=== PATIENT | male | born 1965 | race African-American/Black ===

== ENCOUNTER 2021-06-17 15:07 | Inpatient (IN) | payer SELFPAY ==
[~2021-06-17] VITALS: Ht 162.6 cm; Wt 53.7 kg
[2021-06-17] VITALS (8 sets, daily range): BP systolic 85–101; BP diastolic 36–66
--- NOTE | 2021-06-17 15:11 | NUR ---
[id number] FRM HOME, FOR NOTED SEIZURE EPISODE. HYPOTENSIVE IN THE FIELD VERSED 5MG IVP AND APPROX 300ML NS GIVEN CAREER DEVELOPMENT DIRECTOR. AMS PT A/OX0; RESPONSIVE TO PAIN STIMULI. JAUNDICED. CAREER DEVELOPMENT DIRECTOR RFA #18G S/L; PATENT AND INTACT. CONNECTED PT TO POX AND AND MONITOR. SEIZURE PRECAUTIONS IN PLACE.
[2021-06-17] MEDS ORDERED: LORAZEPAM INJ 2 MG/ML VIAL ONE ×2 (15:12→17:28)
--- NOTE | 2021-06-17 15:24 | NUR ---
STARTED IV LINE ON LEFT THUMB G 20, BLOOD SPECIMEN COLLECTED AND SENT TO THE LAB. THE LINE IS SALINE LOCKED.
[2021-06-17] MEDS ORDERED: LEVETIRACETAM (500MG) 1,000 MG in IV NS 0.9% 100 ML IV SCH (15:30)
[2021-06-17] MEDS ORDERED: IV NS 0.9% 1,000 ML IV ONE (15:30)
[2021-06-17] MEDS ORDERED: LORAZEPAM INJ 2 MG/ML VIAL IV ONE ×2 (15:30→17:30)
[2021-06-17 15:39] LABS: BASOPHILS # (AUTO) 0.1 K/uL (0.0-0.2); BASOPHILS % (AUTO) 0.7 % (0.0-2.0); HEMATOCRIT 26 % (39-51); HEMOGLOBIN 8.2 g/dL (13.5-17.5); LYMPHOCYTES # (AUTO) 0.5 K/uL (0.8-4.8); LYMPHOCYTES % (AUTO) 3.1 % (20.0-44.0); MEAN CORPUSCULAR HGB CONC 32 g/dl (31.0-36.0); MEAN CORPUSCULAR VOLUME 93 fL (80-96); MONOCYTES # (AUTO) 1.5 K/uL (0.1-1.30); MONOCYTES % (AUTO) 8.9 % (2.0-12.0); NEUTROPHILS # (AUTO) 14.9 K/uL (1.8-8.9); NEUTROPHILS % (AUTO) 87.3 % (43.0-81.0); PLATELET COUNT (AUTO) 213 K/uL (150-450); RED BLOOD CELL COUNT(AUTO) 2.74 MIL/uL (4.5-6.0)
--- NOTE | 2021-06-17 15:40 | NUR ---
INSERTED F/C 16FR; DRAINING ORANGE URINE; PATENT AND INTACT. URINE COLLECTED AND SENT TO LAB
--- NOTE | 2021-06-17 15:42 | NUR ---
BARBER INSTRUCTOR AT PT'S BEDSIDE
[2021-06-17 15:52] LABS: ALANINE AMINOTRANSFERASE 25 U/L (12-78); ALBUMIN 1.7 g/dL (3.4-5.0); ALKALINE PHOSPHATASE 310 U/L (46-116); ASPARTATE AMINOTRANSFERASE 188 U/L (15-37); BILIRUBIN,DIRECT 15.7 mg/dL (0.0-0.2); BILIRUBIN,TOTAL 22.1 mg/dL (0.2-1.0); CALCIUM, SERUM 6.9 mg/dL (8.5-10.1); CHLORIDE 82 mmol/L (98-107); CREATININE 1.1 mg/dL (0.6-1.3); GLUCOSE 80 mg/dL (74-106); SODIUM SERUM 130 mmol/L (136-145); TOTAL PROTEIN, SERUM 5.4 g/dL (6.4-8.2); UREA NITROGEN, BLOOD 19 mg/dL (7-18)
[2021-06-17 15:55] LABS: CARBON DIOXIDE 47 mmol/L (21-32); POTASSIUM 1.9 mmol/L (3.5-5.1)
[2021-06-17 15:56] LABS: ACETAMINOPHEN < 0 ug/ml (10-30); ALCOHOL, BLOOD < 3 mg/dL (0-0)
--- NOTE | 2021-06-17 15:57 | NUR ---
MOVE SHEET SUBMITTED AND CALLED FOR ICU.
[2021-06-17 16:10] LABS: BILIRUBIN,URINE LARGE (NEGATIVE); COLOR,URINE AMBER (YELLOW); LEUKOCYTE ESTERASE ,URINE NEGATIVE (NEGATIVE); NITRITE, URINE POSITIVE (NEGATIVE); PROTEIN,URINE 100 mg/dl (NEGATIVE); UGLUCOSE 100 MG/DL mg/dL (NEGATIVE)
[2021-06-17] MEDS ORDERED: POTASSIUM CL. PREMIX PERIPHER. 300 ML ONE (16:21)
[2021-06-17 16:22] LABS: BAND % (MANUAL) 3 % (0.0-5.0); LYMPHOCYTES % (MANUAL) 6 % (16-48); MONOCYTES % (MANUAL) 8 % (0-11.0); NEUTROPHILS % (MANUAL) 83 (42-76)
--- NOTE | 2021-06-17 16:22 | NUR ---
CALLED COFFEE MAKER SERVICER FOR PICC LINE.
[2021-06-17 16:27] LABS: BACTERIA,URINE Few /HPF (None Seen); SQUAMOUS EPITHELIAL CELL,UR Few /HPF (None Seen); WBC,URINE 0-2 /HPF (0-3)
[2021-06-17] MEDS ORDERED: CEFEPIME 2 GM in IV D5W 100 ML IV SCH (16:30)
[2021-06-17] MEDS ORDERED: VANCOMYCIN 1 GM in IV D5W 250 ML IV ONE (16:30)
--- NOTE | 2021-06-17 16:30 | NUR ---
PT TAKEN TO CT VIA VIRGIL WITH RN
[2021-06-17] MEDS ORDERED: Magnesium 1GM/D5W 100ML PREMIX 400 ML IV ONE (16:36)
--- NOTE | 2021-06-17 16:44 | NUR ---
RT AT PT'S BEDSIDE FOR ABG. RESULTS SHOWED TO DR KOEHLER. ORDERS TO PUT PT ON O2 2LPM VIA N/C; TOLERATING AT 100%
[2021-06-17 16:45] LABS: ABG BASE EXCESS 23.4 mmol/L; ABG PCO2 56.6 mmHg (35.0-45.0); ABG PO2 112.6 mmHg (75.0-100.0); COHb 1.7 % (0.5-1.5); MetHb 0.4 % (0.0-1.5); O2Hb 96.5 % (94.0-97.0); SITE, ABG Right Radial; VENT MODE, BG 4LPM NC
--- NOTE | 2021-06-17 16:45 | NUR ---
RT ABG RESULTS SHOWN TO DR. KOEHLER. PLACED PATIENT ON 2LPM NC. RN AWARE AND AT BEDSIDE. SpO2 100%
[2021-06-17] MEDS: POTASSIUM CL. PREMIX PERIPHER. 50 ML IV SCH ×6 (16:49→21:56)
[2021-06-17] MEDS ORDERED: IV NS 0.9% 1,000 ML BAG IV ONE (17:00)
--- NOTE | 2021-06-17 17:10 | NUR ---
COVID ANTIGEN SWAB COLLECTED AND SENT TO LAB
[2021-06-17] MEDS ORDERED: ASPIRIN 300 MG/SUPP.RECT RC ONE ×2 (17:30→17:34)
[2021-06-17] MEDS: Magnesium 1GM/D5W 100ML PREMIX 100 ML IV SCH ×4 (17:53→20:54)
[2021-06-17] MEDS ORDERED: MAG HYDROX/AL HYDROX/SIMETH 30 ML UDC PO PRN (18:00)
[2021-06-17] MEDS ORDERED: ZOLPIDEM TARTRATE 5 MG TABLET PO PRN (18:00)
[2021-06-17] MEDS ORDERED: ACETAMINOPHEN 325 MG TABLET PO PRN (18:00)
[2021-06-17] MEDS ORDERED: ONDANSETRON HCL/PF 4 MG/2 ML VIAL IVP PRN (18:00)
[2021-06-17] MEDS ORDERED: MAGNESIUM HYDROXIDE 30 ML UDC PO PRN (18:00)
[2021-06-17] MEDS ORDERED: HEPARIN INFUSION/D5W 500 ML IV PRN (18:00)
[2021-06-17] MEDS ORDERED: Z GUARD REMEDY 2 OZ OINT TP PRN (18:00)
[2021-06-17] MEDS ORDERED: LORAZEPAM INJ 2 MG/ML VIAL IV PRN (18:00)
[2021-06-17] MEDS ORDERED: IV D5/ 0.9% NACL 1,000 ML IV ONE (18:00)
--- NOTE | 2021-06-17 19:30 | NUR ---
ADIEL HDZ NURSE AT PT'S BEDSIDE; CONSENT FORM SIGNED
--- NOTE | 2021-06-17 19:43 | NUR ---
JOSE #18G PICCLINE; PATENT AND INTACT.
--- NOTE | 2021-06-17 20:28 | NUR ---
REPORT GIVEN TO MIGUEL COTTRELL RN FOR RACHEL
--- NOTE | 2021-06-17 20:50 | NUR ---
ICU/AVIATION ELECTRONIC WARFARE OPERATOR RECIEVED REPORT FROM ER NURSE.
--- NOTE | 2021-06-17 21:09 | NUR ---
PT TRANSFERRED TO ICU 254 VIA ACLS AND SEIZURE PROTOCOL. ALL BELONGINGS WITH PT. VSS
--- NOTE | 2021-06-17 21:10 | NUR ---
ICU/EPIDEMIOLOGY INTERNSHIP PT CAME UP FROM ER. PT TRANSFERED INTO BED. THEN ICU ASSESSMENT WAS DONE. ALL NEW ORDERS WERE CARRIED OUT.
--- NOTE | 2021-06-17 22:20 | NUR ---
ICU/OSS ARCHITECT SPOKE TO PT'S BROTHER YESSENIA BARRINGTON [phone] AND SISTER NICHOLE BARRINGTON [phone], GAVE THEN UPDATES.
--- NOTE | 2021-06-17 23:00 | NUR ---
ICU/BAKERY CLERK PT'S BP IS LOW, GOT AN ORDER FOR LEVO FOR THIS. WILL CONTINUE TO MONITOR THIS PT'S BP.
--- NOTE | 2021-06-17 23:52 | NUR ---
ICU/GUARD CAPTAIN LAB CALLED ABOUT POSITIVE TROP. AT 1.952, THIS IS TRENDING DOWN.
[2021-06-18] VITALS (54 sets, daily range): BP systolic 37–173; BP diastolic 15–106
[2021-06-18] MEDS ORDERED: NOREPINEPHRINE 8MG/250ML RTU 250 ML IV ONE ×2 (00:09→04:23)
[2021-06-18] MEDS: NOREPINEPHRINE 8 MG in IV NS 0.9% 242 ML IV PRN ×3 (00:12→11:46)
--- NOTE | 2021-06-18 00:20 | NUR ---
ICU/ECONOMICS CONSULTANT LEVO STARTED BY BONDERIZER OPERATOR NURSE FOR LOW BP 84/27, HEART RATE 100. WILL CONTINUE TO MONITOR THIS PT CLOSELY
--- NOTE | 2021-06-18 01:27 | NUR ---
ICU/FACULTY NEUROPSYCHOLOGIST PT'S BP IS STABLE AT THIS TIME WHILE ON LEVO. WILL CONTINUE TO MONITOR THIS PT.
[2021-06-18] MEDS ORDERED: LEVETIRACETAM (500MG) 500 MG in IV NS 0.9% 100 ML IV SCH (03:00)
--- NOTE | 2021-06-18 03:30 | NUR ---
ICU/RUBBER GOODS INSPECTOR TESTER LEVO WAS TITR. TO MAX 1.0 MCG. WILL MONITOR THIS PT.
--- NOTE | 2021-06-18 04:30 | NUR ---
ICU/RODBUSTER SEIZURE LIKE ACTIVITY GAVE ATIVAN PRN FOR THIS BY TUBING MACHINE OPERATOR NURSE. ALSO LOW SATURATION TO LOW 80'S UNIT SUPERVISOR TO A SIMPLE MASK FROM N/C.
[2021-06-18] MEDS ORDERED: VANCOMYCIN 1 GM VIAL ONE (04:39)
[2021-06-18 04:56] LABS: BASOPHILS % (AUTO) 0.2 % (0.0-2.0); EOSINOPHILS % (AUTO) 0.1 % (0.0-6.0); HEMATOCRIT 28 % (39-51); LYMPHOCYTES # (AUTO) 3.7 K/uL (0.8-4.8); LYMPHOCYTES % (AUTO) 18.5 % (20.0-44.0); MEAN CORPUSCULAR HGB CONC 33 g/dl (31.0-36.0); MEAN CORPUSCULAR VOLUME 95 fL (80-96); MONOCYTES # (AUTO) 1.6 K/uL (0.1-1.30); MONOCYTES % (AUTO) 7.8 % (2.0-12.0); NEUTROPHILS # (AUTO) 14.8 K/uL (1.8-8.9); NEUTROPHILS % (AUTO) 73.4 % (43.0-81.0); PLATELET COUNT (AUTO) 259 K/uL (150-450); RED BLOOD CELL COUNT(AUTO) 2.92 MIL/uL (4.5-6.0); WHITE BLOOD COUNT (AUTO) 20.2 K/uL (4.3-11.0)
[2021-06-18] MEDS ORDERED: VANCOMYCIN 0.75 GM in IV D5W 250 ML IV SCH (05:00)
[2021-06-18 05:23] LABS: CALCIUM, SERUM 6.7 mg/dL (8.5-10.1); CREATININE 0.9 mg/dL (0.6-1.3); MAGNESIUM 2.4 mg/dL (1.8-2.4); THYROID STIMULATING HORMONE 0.566 uIU/mL (0.358-3.74)
[2021-06-18] MEDS ORDERED: PHENYLEPHRINE 50 MG in IV NS 0.9% 245 ML IV PRN ×2 (06:30→07:30)
[2021-06-18] MEDS: CEFEPIME 2 GM in IV D5W 100 ML IV SCH ×2 (06:43→08:34)
--- NOTE | 2021-06-18 06:50 | NUR ---
ICU/PRINCIPAL WEB DEVELOPER LOW SATURATION CHANGED OVER TO A NON REBREATHE MASK TO 15 LITERS AND STAT ABG.
--- NOTE | 2021-06-18 06:55 | NUR ---
ICU/GLUER AND SLICER HAND STARTED SECOND PRESSOR OF TANESHA DUE TO LOW BP. WILL MONITOR THIS BP
[2021-06-18 07:05] LABS: POTASSIUM 1.5 mmol/L (3.5-5.1)
[2021-06-18 07:06] LABS: PHOSPHORUS 0.8 mg/dL (2.5-4.9)
--- NOTE | 2021-06-18 07:11 | NUR ---
ICU/KITCHEN HELP HANDYMAN CALLED FAMILY ABOUT CALL STATUS. FAMILY WILL CALL BACK.
[2021-06-18 07:16] LABS: ABG BASE EXCESS 12.3 mmol/L; ABG PCO2 58.5 mmHg (35.0-45.0); ABG PH 7.435 (7.350-7.450); ABG PO2 65.9 mmHg (75.0-100.0); MetHb 0.4 % (0.0-1.5); O2Hb 90.2 % (94.0-97.0); SITE, ABG Left Radial; VENT MODE, BG NRB 15L
--- NOTE | 2021-06-18 07:45 | NUR ---
ARTIST AGENT OPENING NOTES Received patient not arousable to stimuli and on 15 liters non rebreather mask with 02 sat of 92%, BP of 65/28, pulse of 157. Per report potassium of 1.5. Patients genralized skin tone dark yellow.Patient noted with generalized seizures. Seizure precuations in place. IV site noted to right upper arm picc line running levo 0.8 mcg/kg/min and ramsey running at 1.5 mcg/kg/min. Informed Dr Whitfield and received orders for k chloride 60 meq IV. Orders noted and carried out. Patient will be monitored.Bed is in lowest and locked position. Padded siderails noted. Will continue to monitor.
[2021-06-18] MEDS: POTASSIUM CL. PREMIX PERIPHER. 50 ML IV SCH ×6 (07:50→13:46)
--- NOTE | 2021-06-18 08:18 | NUR ---
Patient's Sister at bedside and on facetime with mother. Code status changed to DNR/DNI per daughter/mother request. Dr. Armenta ordered to change it in they system. Charge nurse witnessed the request and cosigned.
[2021-06-18] MEDS ORDERED: Sodium Phosphate 30 MMOL in IV NS 0.9% 250 ML IV SCH (09:00)
[2021-06-18] MEDS ORDERED: PANTOPRAZOLE 40 MG VIAL IV SCH (09:00)
[2021-06-18] MEDS ORDERED: ASPIRIN 81 MG TAB.CHEW PO SCH (09:00)
[2021-06-18 09:54] LABS: LYMPHOCYTES % (MANUAL) 8 % (16-48); MONOCYTES % (MANUAL) 3 % (0-11.0); NEUTROPHILS % (MANUAL) 89 (42-76)
[2021-06-18] MEDS ORDERED: LACTULOSE UDC 200 G in SODIUM CHLORIDE IRRIG SOLUTION 400 ML IR SCH ×2 (10:00→13:00)
[2021-06-18] MEDS ORDERED: IV D5/ 0.9% NACL 1,000 ML IV PRN (10:00)
[2021-06-18] MEDS ORDERED: LORAZEPAM INJ 2 MG/ML VIAL IV PRN (10:00)
--- NOTE | 2021-06-18 12:00 | NUR ---
Received order from Dr Corrigan to d/c iv fluids D5NS. Orders noted and carried out.
--- NOTE | 2021-06-18 12:00 | NUR ---
Per MD Whitfield to start lactulose rectal at 1300 due to supply not available at 10 am.
--- NOTE | 2021-06-18 12:17 | NUR ---
Dr Whitfield at bedside with sister Crystal.
[2021-06-18] MEDS ORDERED: PHENYLEPHRINE 100 MG in IV NS 0.9% 240 ML IV PRN (12:30)
--- NOTE | 2021-06-18 14:24 | NUR ---
PATIENT NOTED CHLOE ON MONITOR THEN ASYTOLE. PULSES NOT PALPABLE. NO HEART TONE. NO BREATHING, APNEIC. NO BP. BILATERAL PUPILS FIXED AND DILATED. PATIENT DNR/DNI STATUS. PRONOUNCED.
--- NOTE | 2021-06-18 14:26 | NUR ---
Patient at 1424. Pronounced by Charge nurse Lex MCGRATH. MD Whitfield made aware.Patient is DNR/DNI status. Family( sister Crystal) in the facility and made aware.
--- NOTE | 2021-06-18 14:57 | NUR ---
PAINTER ORDNANCE DISEASE CASE MANAGER TO AND INFORMED PAINTER ORDNANCE TERAN AND RELEASED BODY. [facility] CALLED AND SPOKE TO [facility] REFERENCE NUMBER [id number] AND BODY RELEASED.
[2021-06-18] MEDS ORDERED: POTASSIUM CL. PREMIX PERIPHER. 50 ML IV SCH (23:00)
== END 2021-06-18 23:33 | disposition home or self-care (01) | DRG 871 ==
LOC: ER 15:14 → ICU 20:19
PROVIDERS: ADMIT Student in an Organized Health Care Education/Training Program; ATTEND Student in an Organized Health Care Education/Training Program
PROC: 02HV33Z Insertion of Infusion Device into Superior Vena Cava, Percutaneous Approach (ICD-10-PCS; principal; 2021-06-17)
PROC: B548ZZA Ultrasonography of Superior Vena Cava, Guidance (ICD-10-PCS; 2021-06-17)
DX: A41.9 Sepsis, unspecified organism (principal); I21.A1 Myocardial infarction type 2; R65.21 Severe sepsis with septic shock; E43 Unspecified severe protein-calorie malnutrition; J18.9 Pneumonia, unspecified organism; D68.9 Coagulation defect, unspecified; E87.1 Hypo-osmolality and hyponatremia; E87.3 Alkalosis; K72.90 Hepatic failure, unspecified without coma; Z20.822 Contact with and (suspected) exposure to COVID-19; K74.60 Unspecified cirrhosis of liver; G40.901 Epilepsy, unspecified, not intractable, with status epilepticus; E86.0 Dehydration; E87.6 Hypokalemia; E83.42 Hypomagnesemia; E83.39 Other disorders of phosphorus metabolism; Z66 Do not resuscitate; R79.89 Other specified abnormal findings of blood chemistry; J32.0 Chronic maxillary sinusitis
CPT/HCPCS: 36415; 36600; 70450-TC; 71045-TC; 80048-TC; 80076-TC; 81001; 82140-TC; 82803-TC; 83605-TC; 83735-TC; 84100-TC; 84443-TC; 84484-TC; 85025-TC; 85378-TC; 85730-TC; 87040-TC; 87081-TC; 87086-TC; 93307-TC; A4217; A9563; C9113; C9803; G0378; G0480; J0692; J1953; J2060; J2370; J3370; J3475; J3480; J7030; J7042; J7050; J7060